=== PATIENT | male | born 1970 | race Hispanic/Latino ===

== ENCOUNTER 2016-09-08 13:20 | Emergency (ER) | payer OTHER ==
[2016-09-08 13:21] VITALS: BMI 21.4
[2016-09-08 14:56] VITALS: RESP 18; TEMP 97.9; O2SAT 98
--- NOTE | 2016-09-08 16:36 | C.PDOC ---
History Of Present Illness 46 y/o male complaining of right knee pain over the last week after he jumped from a dock. He complains that the knee is swollen and painful. Patient has history of past knee sprain. Denies any fever or other injury/complaint. Time Seen by Provider: 09/08/16 15:12 Chief Complaint (Nursing): Lower Extremity Problem/Injury History Per: Patient History/Exam Limitations: no limitations Onset/Duration Of Symptoms: Days Current Symptoms Are (Timing): Still Present Severity: Moderate Recent travel outside of the [place]: No Additional History Per: Patient - Hip Description Of Injury: Other (jumped off dock) Past Medical History Reviewed: Historical Data, Nursing Documentation, Vital Signs Vital Signs: Last Vital Signs Temp 97.9 F 09/08/16 14:50 Pulse 75 09/08/16 16:40 Resp 18 09/08/16 16:40 BP 124/71 09/08/16 16:40 Pulse Ox 98 09/08/16 17:07 - Medical History PMH: Denies: Diabetes, Hepatitis, HIV, HTN, Seizures, Sexually Transmitted Disease Family History: States: Unknown Family Hx - Social History Hx Alcohol Use: Yes Hx Substance Use: Yes - Immunization History Hx Tetanus Toxoid Vaccination: No Hx Influenza Vaccination: No Hx Pneumococcal Vaccination: No Review Of Systems Except As Marked, All Systems Reviewed And Found Negative. Musculoskeletal: Positive for: Leg Pain Physical Exam - Physical Exam Appears: Non-toxic, No Acute Distress Skin: Warm, Dry Nose: No Epistaxis, No Deformity Oral Mucosa: Moist Neck: Normal ROM Chest: No Deformity Cardiovascular: Rhythm Regular Respiratory: Normal Breath Sounds Extremity: Normal ROM Extremity: Right: Joint Effusion (mild) Neurological/Psych: Oriented x3 ED Course And Treatment O2 Sat by Pulse Oximetry: 98 - Other Rad Knee XR X-Ray: Read By Radiologist Interpretation: Mild size suprapatellar joint effusion is present. Medical Decision Making Medical Decision Making: Initial Impression: 46 y/o male complaining of knee pain and swelling. Plan: - XR knee - Tylenol XR Report reviewed. On reassessment, patient is resting comfortably, and is in no acute distress. He was placed in a knee immobilizer. Patient was instructed to follow up with Orthopaedics for further evaluation in 1-2 days. Disposition Doctor Will See Patient In The: Office Counseled Patient/Family Regarding: Studies Performed, Diagnosis, Need For Followup - Disposition Referrals: Nathaniel Malhotra III, MD [Staff Provider] - [facility] at [facility] [Outside] Disposition: HOME/ ROUTINE Disposition Time: 16:35 Condition: STABLE Additional Instructions: Follow up with your primary medical doctor or clinic in 2-5 days for further evaluation. Take medications as prescribed. Return to the emergency department at any time if symptoms persist or worsen. Instructions: Knee Sprain (ED) - Clinical Impression Clinical Impression: Knee sprain - Scribe Statement The provider has reviewed the documentation as recorded by the Scribe Margarita Huntley
[2016-09-08 16:41] VITALS: BP 124/71; PULSE 75
--- NOTE | 2016-09-08 16:50 | RAD ---
PROCEDURE: Right Knee Radiographs. HISTORY: pain swelling COMPARISON: None. FINDINGS: BONES: No evidence of acute displaced fracture nor dislocation. JOINTS: Normal. No osteoarthritis. JOINT EFFUSION: Moderate size suprapatellar joint effusion is present. OTHER FINDINGS: None. IMPRESSION: Moderate size suprapatellar joint effusion is present.
== END 2016-09-08 16:42 | disposition home or self-care (01) ==
LOC: C.ER 13:20
DX: S83.91XA Sprain of unspecified site of right knee, initial encounter (principal); W17.89XA Other fall from one level to another, initial encounter

== ENCOUNTER 2017-07-27 13:40 | Emergency (ER) | payer OTHER, MEDICAID ==
[2017-07-27 13:41] VITALS: BMI 21.4
[2017-07-27 14:49] VITALS: BP 130/93; PULSE 99; RESP 18; TEMP 98.4; O2SAT 100
--- NOTE | 2017-07-27 15:35 | C.PDOC ---
History Of Present Illness 47 year old male is brought to the ED for public intoxication. Patient was found on the street drunk, stumbling while ambulating. Patient admits to drinking alcohol today. Patient denies any SI/HI, hallucinations, physical complaints, trauma, fall, injury. Time Seen by Provider: 07/27/17 15:01 History Per: Patient, EMS History/Exam Limitations: intoxication Onset/Duration Of Symptoms: Hrs Current Symptoms Are (Timing): Still Present Suicide/Self Injury Attempted (Context): None Modifying Factor(s): Alcohol Associated Symptoms: denies: Depression, Suicidal Thoughts, Suicidal Plan Recent travel outside of the [place]: No Additional History Per: Patient, EMS Past Medical History Reviewed: Historical Data, Nursing Documentation, Vital Signs Vital Signs: Last Vital Signs Temp 98.4 F 07/27/17 14:49 Pulse 99 H 07/27/17 14:49 Resp 18 07/27/17 14:49 BP 130/93 H 07/27/17 14:49 Pulse Ox 100 07/27/17 16:38 - Medical History PMH: No Chronic Diseases Denies: Diabetes, Hepatitis, HIV, HTN, Seizures, Sexually Transmitted Disease Surgical History: No Surg Hx Family History: States: Unknown Family Hx - Social History Hx Alcohol Use: Yes Hx Substance Use: Yes - Immunization History Hx Tetanus Toxoid Vaccination: No Hx Influenza Vaccination: No Hx Pneumococcal Vaccination: No Review Of Systems Constitutional: Negative for: Fever, Chills Cardiovascular: Negative for: Chest Pain, Palpitations Respiratory: Negative for: Cough, Shortness of Breath Gastrointestinal: Negative for: Nausea, Vomiting, Abdominal Pain Skin: Negative for: Rash Neurological: Negative for: Weakness, Numbness Psych: Negative for: Depression, Suicidal ideation Physical Exam - Physical Exam Appears: Non-toxic, No Acute Distress Skin: Normal Color, Warm, Dry Head: Atraumatic, Normacephalic Eye(s): bilateral: Normal Inspection Nose: No Discharge, No Deformity Oral Mucosa: Moist Neck: Normal ROM, Supple Cardiovascular: Rhythm Regular, No Murmur Respiratory: Normal Breath Sounds, No Rales, No Rhonchi, No Wheezing Gastrointestinal/Abdominal: Soft, No Tenderness, No Guarding, No Rebound Extremity: Normal ROM, No Deformity, No Swelling Neurological/Psych: Oriented x3 ED Course And Treatment O2 Sat by Pulse Oximetry: 100 (On RA) Pulse Ox Interpretation: Normal Medical Decision Making Medical Decision Making: pt able to ambulate with steady gait, speaks clearly, will d/c home. Disposition Counseled Patient/Family Regarding: Diagnosis, Need For Followup - Disposition Referrals: [facility] at [facility] [Outside] Disposition: HOME/ ROUTINE Disposition Time: 16:35 Condition: STABLE Additional Instructions: Please consider detox for your drinking problem. Follow up in clinic or with your own doctor. Instructions: Abuse of Alcohol (ED) Forms: General Discharge Instructions, [facility] (Bhutanese) - Clinical Impression Clinical Impression: Alcohol abuse - PA / MANGA ARTIST / Resident Statement MD/DO has reviewed & agrees with the documentation as recorded. - Scribe Statement The provider has reviewed the documentation as recorded by the Scribe Basil Christopher All medical record entries made by the Alisaibe were at my direction and personally dictated by me. I have reviewed the chart and agree that the record accurately reflects my personal performance of the history, physical exam, medical decision making, and the department course for this patient. I have also personally directed, reviewed, and agree with the discharge instructions and disposition.
== END 2017-07-27 16:58 | disposition home or self-care (01) ==
LOC: C.ER 13:40
DX: F10.10 Alcohol abuse, uncomplicated (principal); Y90.9 Presence of alcohol in blood, level not specified

== ENCOUNTER 2018-09-12 15:27 | Inpatient (IN) | payer MEDICAID, OTHER ==
[2018-09-12 15:28] VITALS: BMI 21.6
--- NOTE | 2018-09-12 15:37 | C.PDOC ---
History Of Present Illness 48 y/o male with a PMHx of alcohol abuse presents to the ED requesting detox from alcohol. States he last drank like 10 minutes ago. Otherwise patient offers no medical complaints. He denies any suicidal or homicidal ideation. Also denies any pain, fevers, chills, tremors/shaking, cold sweats, vomiting, or other complaints. Time Seen by Provider: 09/12/18 15:37 Chief Complaint (Nursing): Substance Abuse History Per: Patient History/Exam Limitations: no limitations Onset/Duration Of Symptoms: Hrs Current Symptoms Are (Timing): Still Present Modifying Factor(s): Alcohol Associated Symptoms: denies: Suicidal Thoughts, Suicidal Plan Past Medical History Reviewed: Historical Data, Nursing Documentation, Vital Signs Vital Signs: Last Vital Signs Temp 98.8 F 09/12/18 15:32 Pulse 114 H 09/12/18 15:32 Resp 18 09/12/18 15:32 BP 160/98 H 09/12/18 15:32 Pulse Ox 97 09/12/18 15:32 - Medical History PMH: Denies: Diabetes, Hepatitis, HIV, HTN, Seizures, Sexually Transmitted Disease Surgical History: No Surg Hx Family History: States: Unknown Family Hx - Social History Hx Alcohol Use: Yes Hx Substance Use: No - Immunization History Hx Tetanus Toxoid Vaccination: No Hx Influenza Vaccination: No Hx Pneumococcal Vaccination: No Review Of Systems Constitutional: Negative for: Fever, Chills, Sweats Eyes: Negative for: Vision Change Cardiovascular: Negative for: Chest Pain, Palpitations Respiratory: Negative for: Shortness of Breath Gastrointestinal: Negative for: Vomiting, Abdominal Pain Neurological: Negative for: Weakness, Numbness Psych: Positive for: Other (+ETOH abuse). Negative for: Suicidal ideation (or homicidal) Physical Exam - Physical Exam Appears: Non-toxic, No Acute Distress Skin: Warm, Dry Head: Normacephalic Eye(s): bilateral: Normal Inspection, PERRL, EOMI Oral Mucosa: Moist Neck: Trachea Midline, Supple, Other (No meningeal signs) Chest: Symmetrical Cardiovascular: Rhythm Regular, No Friction Rub Respiratory: No Rales, No Rhonchi, No Wheezing Gastrointestinal/Abdominal: Soft, No Tenderness, No Distention Extremity: Bilateral: Normal Color And Temperature Pulses: Left Dorsalis Pedis: Normal, Right Dorsalis Pedis: Normal Neurological/Psych: Oriented x3 Gait: Steady ED Course And Treatment - Laboratory Results Result Diagrams: 09/12/18 15:48 09/12/18 15:48 O2 Sat by Pulse Oximetry: 97 (on RA) Pulse Ox Interpretation: Normal Medical Decision Making Medical Decision Makin48 y/o male seeking detox from alcohol. States he last drank like 10 minutes ago. No meningeal signs on exam. Normal neuro exam. Plan: Labs ordered for medical clearance. squadron worker to speak to and evaluate patient for detox. 1951 medically cleared appreciate consult w/ Crisis team: to admit to Dr. Good pt in NAD, no signs of withdrawal Disposition - Disposition Disposition Time: 19:54 Condition: GOOD Forms: [facility] (Upper Sorbian) - Clinical Impression Clinical Impression: Alcohol use disorder - Scribe Statement The provider has reviewed the documentation as recorded by the Aminata Angeles Provider Attestation: All medical record entries made by the Alisaibwaqar were at my direction and personally dictated by me. I have reviewed the chart and agree that the record accurately reflects my personal performance of the history, physical exam, medical decision making, and the department course for this patient. I have also personally directed, reviewed, and agree with the discharge instructions and disposition.
[2018-09-12 15:54] LABS: BASO # 0.1 K/uL (0.0-0.2); BASO % 0.8 % (0.0-2.0); EOS % 0.5 % (0.0-4.0); HEMOGLOBIN 15.3 g/dL (12.0-18.0); LYMPH # 1.9 K/uL (1.0-4.3); LYMPH % 20.7 % (20.0-40.0); MEAN CELL VOLUME 90.7 fL (80.0-94.0); MEAN CORPUSCULAR HEMOGLOBIN 30.5 pg (27.0-31.0); MEAN CORPUSCULAR HGB CONC 33.6 g/dL (33.0-37.0); MEAN PLATELET VOLUME 7.4 fL (7.2-11.7); MONO # 0.6 K/uL (0.0-0.8); MONO % 6.9 % (0.0-10.0); NEUT # 6.6 K/uL (1.8-7.0); NEUT % 71.1 % (50.0-75.0); NRBC % 0.1 % (0.0-2.0); RBC 5.03 Mil/uL (4.40-5.90); RED CELL DISTRIBUTION WIDTH 14.4 % (11.5-14.5); WHITE BLOOD COUNT 9.2 K/uL (4.8-10.8)
[2018-09-12 16:06] LABS: ACETAMINOPHEN < 10.0 ug/mL (10.0-30.0); SALICYLATE < 1.0 mg/dL 1
[2018-09-12 16:08] LABS: ALB/GLOB RATIO 1.6 (1.0-2.1); ALBUMIN 4.7 g/dL (3.5-5.0); ALT/SGPT 46 U/L (21-72); AST/SGOT 70 U/L (17-59); BLOOD UREA NITROGEN 9 mg/dL (9-20); CALCIUM 9.6 mg/dl (8.6-10.4); GFR NON-AFRICAN AMERICAN > 60
[2018-09-12 16:28] LABS: URINE BILIRUBIN NEGATIVE (NEGATIVE); URINE BLOOD NEGATIVE (NEGATIVE); URINE CLARITY Clear (Clear); URINE COLOR Straw (YELLOW); URINE GLUCOSE (UA) NORMAL (Normal); URINE LEUKOCYTE ESTERASE NEG Leu/uL (Negative); URINE PROTEIN NEGATIVE (NEGATIVE); URINE UROBILINOGEN NORMAL mg/dL (0.2-1.0)
[2018-09-12 16:43] LABS: BARBITURATES, UR NEGATIVE (NEGATIVE); BENZODIAZEPINES, UR NEGATIVE (NEGATIVE); OPIATES, UR NEGATIVE (NEGATIVE); PHENCYCLIDINE, UR NEGATIVE (NEGATIVE)
--- NOTE | 2018-09-12 21:27 | PCM.BM ---
<Geraldine Melissa - Last Filed: 09/12/18 21:24> Treatment Plan Problems - Problems identified on initial assessmt anxiety related to substance use Date Initiated: 09/12/18 Time Initiated: 21:25 Assessment reference: NA Status: Active denial Date Initiated: 09/12/18 Time Initiated: 21:26 Assessment reference: NA Status: Active low motivation to change Date Initiated: 09/12/18 Time Initiated: 21:26 Assessment reference: NA Status: Active Treatment assets and liabiliti Patient Assests: adapts well, cooperative, insightful, motivated, resourceful, ADL independent, physically healthy, negotiates basic needs, cognitively intact Patient Liabilities: substance abuse - Milieu Protocol Maintain good personal hygiene: daily Encourage regular showers, daily Remind patient to perform daily oral care, daily Assist patient to perform ADL's Conduct patient checks and document Observation sheet: Q15 minutes Maintain personal safety: every shift Educate patient to report safety concerns to staff, every shift Monitor environment for contraband/sharps Medication safety: Monitor for expected outcome, potential side effects: every shift, Assess barriers to learning: every shift, Assess readiness for medication education: every shift <Fred Good - Last Filed: 09/14/18 00:01> - Diagnosis (1) Alcohol use disorder Status: Acute Interventions: 09/14/18 00:01 * Assess 7x/week regarding severity of withdrawal * Educate regarding risks, benefits, side effects and alternatives of medications * Use Motivational Interviewing for abstinence * Use CBT for relapse prevention * Medication management for withdrawal symptoms * Encourage medication assisted treatment *
--- NOTE | 2018-09-13 09:40 | PCM.PSYCH ---
Initial Psychiatric Evaluation - Initial Psychiatric Evaluation Type of Admission: Voluntary Legal Status: Capacity Chief Complaint (in patient's own words): "I need detox" History of Present Illness and Precipitating Events: 48 y/o male past psych history of poly-substance abuse presented on 09/12 and was admitted to the [facility] [place] detox unit for evaluation and management of alcohol detox. He recently came back from a cruise, and admits to drinking heavily on the trip. He states that his fiance noticed that he was unable to control his drinking on the trip. On average he drinks 16 shots per day or drinks "until he passes out". He had near DT few times, He also admits to snorting 4-5 bags of heroin a day, stating that he goes back and forth between heroin and alcohol abuse. He has been to detox 5-6 times in the past and reports trouble staying clean once he leaves rehab. He has overdosed on heroin 3 times in the past year. Last time was in 2019 and he "flatlined." Reports feeling sick when he tries to come off of heroin. States that he buys suboxone when he cannot find heroin. Pt is interested in an outpatient rehab program. He denies medical diagnosis but he was told his liver was impaired He suffers from severe anxiety Social: Lives with GF, has a teen child who is now with him, employed, Fiance is clean. Current Medications: Active Medications Generic Name Dose Route Start Last Admin Trade Name Freq PRN Reason Stop Dose Admin Chlordiazepoxide 25 mg 09/13/18 00:00 09/13/18 05:25 Librium PO 09/16/18 23:59 25 mg Q6 JAN Administration Taper Chlordiazepoxide 25 mg 09/12/18 20:33 09/12/18 20:43 Librium PO 25 mg Q4H PRN Administration Alcohol Withdrawal Clonidine HCl 0.1 mg 09/12/18 20:33 09/13/18 05:25 Catapres PO 0.1 mg Q4H PRN Administration Symptoms of alcohol withdrawl Folic Acid 1 mg 09/13/18 10:00 09/13/18 09:00 Folic Acid PO 1 mg DAILY JAN Administration Hydroxyzine HCl 25 mg 09/12/18 21:29 Atarax PO Q6 PRN Anxiety Multivitamins 1 tab 09/13/18 10:00 09/13/18 09:00 Hexavitamin PO 1 tab DAILY JAN Administration Nicotine 1 patch 09/13/18 10:00 09/13/18 09:27 Nicoderm Cq TD 1 patch DAILY JAN Administration Thiamine HCl 100 mg 09/13/18 10:00 09/13/18 09:00 Vitamin B1 Tab PO 100 mg DAILY JAN Administration Trazodone HCl 50 mg 09/12/18 20:33 09/12/18 21:21 Desyrel PO 50 mg HS PRN Administration Insomnia Past Psychiatric History - Past Psychiatric History Pertinent Medical Hx (Current Medical&Sleep Prob, Allergies): Allergies Allergy/AdvReac Type Severity Reaction Status Date / Time No Known Allergies Allergy Verified 09/12/18 15:36 No Known Home Med 09/12/18 Review of Systems - Neurological Neurological: Tremor - Psychiatric Psychiatric: Abnormal Sleep Pattern, Anhedonia, Anxiety, Change in Appetite, D ifficulty Concentrating. absent: Hallucinations, Homicidal Ideation, Suicidal Ideation Mental Status Examination - Personal Presentation Personal Presentation: Looks stated age - Affect Affect: Broad - Motor Activity Motor Activity: Calm - Reliability in Providing Information Reliability in Providing Information: Good - Speech Speech: Organized - Mood Mood: Depressed, Anxious - Formal Thought Process Formal Thought Process: No Impairment - Cognitive Functions Orientation: Person, Place, Situation, Time Sensorium: Alert Attention/Concentration: Easily distracted Estimate of Intelligence: Average Judgement: Intact, as evidence by: Insight regarding need for hospitalization Memory: Recent intact, as evidence by: Ability to recall events of the day, Remote intact, as evidenced by: Abilit to recall sig. life events - Risk Risk: Seizure, Withdrawal, Diminished functioning - Strength & Assets Inventory Strength & Assets Inventory: Cooperative - Limitations Limitations: Other DSM 5 DX - DSM 5 DSM 5 Diagnosis: Alcohol withdrawal Alcohol use d/o - severe Opioid use d/o - severe Anxiety d/o - unspecified - Recommended/Plan of Treatment Treatment Recommendations and Plan of Treatment: Taper with librium Gabapentin for augmentation if needed As needed medications All risks, benefits and alternatives of the meds discussed, and the pt agreed and understood. Attend groups and activities Supportive therapy and psychoeducation PR for abstinence CBT for relapse prevention Encourage MAT Refer to rehab or IOP, and self-help groups Teach healthy lifestyle methods, i.e. diet, exercise, meditation Smoking cessation with PR Nicotine patch if needed 34 min Projected ELOS: 4 days
[2018-09-13] MEDS ORDERED: Multiple Vitamins Tab PO SCH (10:00)
[2018-09-13 16:40] VITALS: TEMP 98.1
[2018-09-13 18:54] VITALS: BP 150/108; PULSE 86; RESP 18; O2SAT 100
--- NOTE | 2018-09-14 00:02 | PCM.PYCHDC ---
Mental Status Examination - Mental Status Examination Orientation: Person, Place, Situation, Time Memory: Intact Mood: Anxious Affect: Constricted Speech: Appropriate Attention: WNL Concentration: WNL Association: WNL Fund of Knowledge: WNL Formal Thought Process: No Impairment Suicidal Ideation: No Current Homicidal Ideation?: No Discharge Summary - Discharge Note Consultations:: List each consultation separately and include: 1. Reason for request. 2. Findings. 3. Follow-up Summary of Hospital Course include:: 1. Description of specific treatment plan utilized for patients during their course of treatmen. 2. Summarize the time- course for resolution of acute symptoms and/or regressed behaviors. 3. Describe issues identified and worked on during hospitalization. 4. Describe medication utilized. 5. Describe medical problems identified and treated. 6. Reassessment of suicide risk Summary of Hospital Course: On admission: 48 y/o male past psych history of poly-substance abuse presented on 09/12 and was admitted to the [facility] detox unit for evaluation and management of alcohol detox. He recently came back from a cruise, and admits to drinking heavily on the trip. He states that his fiance noticed that he was unable to control his drinking on the trip. On average he drinks 16 shots per da y or drinks "until he passes out". He had near DT few times, He also admits to snorting 4-5 bags of heroin a day, stating that he goes back and forth between heroin and alcohol abuse. He has been to detox 5-6 times in the past and reports trouble staying clean once he leaves rehab. He has overdosed on heroin 3 times in the past year. Last time was in 2019 and he "flatlined." Reports feeling sick when he tries to come off of heroin. States that he buys suboxone when he cannot find heroin. Pt is interested in an outpatient rehab program. He denies medical diagnosis but he was told his liver was impaired He suffers from severe anxiety Social: Lives with GF, has a teen child who is now with him, employed, Fiance is clean. Hospital course: The pt was admitted and started on treatment with psychotherapy, support, psychoeducation and medications. CT and CBT used. All the risks and benefits of medications are discussed and the patient understood and agreed. He was unmotivated and asking for his dc date constantly. He was also somewhat hyper and anxious. He agreed to stay until 3/17 but then tonight he suddenly demanded to leave [facility]. Risks involved incl. seizures and discussed - he still left - Final Diagnosis (DSM 5) Condition upon Discharge: GOOD DSM 5: Alcohol withdrawal Alcohol use d/o - severe Opioid use d/o - severe Anxiety d/o - unspecified Disposition: AGAINST MEDICAL ADVICE Follow-up Treatment Plan: Use relapse prevention skills Return to ER or call 911 if suicidal, homicidal or symptoms relapse. Stay away from stress, alcohol and drugs. See primary doctor regularly and get labs.
== END 2018-09-13 20:25 | disposition left against medical advice (07) | DRG 894 ==
LOC: C.ER 15:27 → C.7D 19:52
PROVIDERS: ADMIT Psychiatry & Neurology Psychiatry; ATTEND Psychiatry & Neurology Psychiatry
PROC: HZ2ZZZZ Detoxification Services for Substance Abuse Treatment (ICD-10-PCS; principal; 2018-09-12)
PROC: HZ52ZZZ Individual Psychotherapy for Substance Abuse Treatment, Cognitive-Behavioral (ICD-10-PCS; 2018-09-12)
PROC: HZ59ZZZ Individual Psychotherapy for Substance Abuse Treatment, Supportive (ICD-10-PCS; 2018-09-12)
DX: F10.239 Alcohol dependence with withdrawal, unspecified (principal); F11.10 Opioid abuse, uncomplicated; F41.9 Anxiety disorder, unspecified; Y90.8 Blood alcohol level of 240 mg/100 ml or more